=== PATIENT | female | born 1950 | race Caucasian/White ===

== ENCOUNTER 2025-08-14 17:42 | Emergency (ER) | payer MEDICARE, OTHER, SELFPAY ==
[2025-08-14] VITALS (11 sets, daily range): BP systolic 108–156; BP diastolic 58–67; PULSE 62–80; RESP 12–18; TEMP 36.6; O2SAT 95–100
--- NOTE | ~2025-08-14 | XR_ITS ---
Examination: XR chest 1V portable Clinical History: palpitations Comparison: None Technique: Portable AP Findings: Heart size normal. Lungs clear. No acute bony abnormality. IMPRESSION: 1. No acute cardiopulmonary findings given portable technique. Reviewed, dictated and finalized at location R. [facility] TECHNICIAN
--- NOTE | 2025-08-14 17:51 | ECG_ITS ---
Test Date: 2025-08-14 17:55:50 Measurements Intervals [place] Rate: 71 P: 20 LA: 173 QRS: -5 QRSD: 116 T: 49 QT: 389 QTc: 425 Interpretive Statements SINUS RHYTHM MODERATE INTRAVENTRICULAR CONDUCTION DELAY [105+ ms QRS DURATION, 80+ ms Q/S IN V1/V2, NO Q AND 60+ ms R IN I/aVL/V5/V6] ABNORMAL ECG No previous ECG available for comparison Electronically Signed On 08-15-2025 08:35:41 EMERGENCY DEPARTMENT TECHNICIAN by Lázaro Marrero M.D.
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
[2025-08-14 20:25] LABS: Hematocrit 34.5 % (37.0-47.0); Hemoglobin 12.1 g/dL (12.0-15.0); Immature Granulocyte Percent A 0.3 % (0-0.5); Lymphocytes Absolute Auto 2.11 K/mm3 (0.9-3.2); Mean Corpuscular HGB Conc 35.1 g/dl (32-36); Mean Corpuscular Hemoglobin 32.4 pg (26-34); Mean Corpuscular Volume 92.5 fl (80-100); Nucleated Red Blood Cells Absolute Auto 0.000 K/mm3 (0.0-0.012); Nucleated Red Blood Cells Perc 0.0 % (0.0-0.2); Platelet Count Result 230 k/mm3 (150-375); Red Blood Count 3.73 M/mm3 (4.2-5.4); White Blood Count 7.4 K/mm3 (4.5-10.0)
[2025-08-14 20:35] LABS: Alanine Aminotransferase 23 U/L (6-35); Albumin Level 4.3 g/dL (3.5-5.1); Alkaline Phosphatase 60 U/L (38-126); Anion Gap 7 mmol/L (4-12); Aspartate Amino Transferase 31 U/L (14-36); Bilirubin,Total 0.5 mg/dL (0.2-1.3); Blood Urea Nitrogen 23 mg/dL (7-17); Calcium 9.1 mg/dL (8.4-10.2); Carbon Dioxide 25 mmol/L (22-30); Chloride 97 mmol/L (98-107); Estimated Glomerular Filt Rate 60; Glucose 103 mg/dL (65-110); INR 1.0; Lipase 77 U/L (23-300); Potassium 4.2 mmol/L (3.4-5.0); Prothrombin Time 13.0 Seconds (11.1-14.7); Sodium 129 mmol/L (137-145); Total Protein 7.1 g/dL (6.3-8.2)
[2025-08-14 20:37] LABS: Partial Thromboplastin Time 27.5 Seconds (22.3-36.8)
[2025-08-14 20:46] LABS: Troponin I < 0.012 ng/mL (0.000-0.034)
== END 2025-08-14 21:05 | disposition home or self-care (01) ==
PROVIDERS: Emergency Provider Student in an Organized Health Care Education/Training Program
DX: R00.2 Palpitations (principal); I25.10 Atherosclerotic heart disease of native coronary artery without angina pectoris; Z95.1 Presence of aortocoronary bypass graft; I10 Essential (primary) hypertension
CPT/HCPCS: 36415; 71045; 80053; 83690; 84484; 85025; 85610; 85730; 93005; 99284